=== PATIENT | female | born 1995 | race African-American/Black ===

== ENCOUNTER 2022-03-05 15:06 | Emergency (ER) | payer MEDICAID ==
[2022-03-06] MEDS ORDERED: NAPR-1074 MT (13:43)
== END 2022-03-05 15:36 | disposition left against medical advice (07) ==
LOC: ER 15:06
DX: Z53.21 Procedure and treatment not carried out due to patient leaving prior to being seen by health care provider (principal)

== ENCOUNTER 2022-03-06 08:53 | Emergency (ER) | payer MEDICAID ==
[~2022-03-06] VITALS: Ht 170.2 cm; Wt 127.0 kg
[2022-03-06] MEDS ORDERED: ACETAMINOPHEN 325MG TABLET PO ONE ×2 (09:30→12:00)
[2022-03-06 12:12] LABS: HEMATOCRIT. 38.4 % (36.0-48.0); HEMOGLOBIN. 12.8 g/dL (12.0-16.0); MEAN CORPUSCULAR HEMOGLOBIN 30.6 pg (28.0-32.0); MEAN CORPUSCULAR VOLUME 91.4 fL (81.0-99.0); MEAN PLATELET VOLUME 9.3 fl (7.4-10.4); PLATELET 216 x1000/uL (130-400); RED CELL DISTRIBUTION WIDTH 14.9 % (11.6-14.6)
[2022-03-06 12:19] LABS: CHLORIDE 105 mEq/L (98-107)
[2022-03-06 12:27] LABS: CLARITY URINE TURBID (CLEAR); COLOR URINE YELLOW (YELLOW); KETONES URINE 1+ (NEGATIVE); LEUKOCYTE ESTERASE URINE TRACE (NEGATIVE); NITRITE URINE NEGATIVE (NEGATIVE); OCCULT BLOOD URINE NEGATIVE (NEGATIVE); PH URINE 5.5 (4.5-8.0); PROTEIN URINE 1+ (NEGATIVE); SPECIFIC GRAVITY URINE 1.028 (1.005-1.030)
[2022-03-06 12:30] LABS: ETHANOL BLOOD < 10 mg/dL
[2022-03-06 12:44] LABS: PLATELET ESTIMATE NORMAL
[2022-03-06 13:20] LABS: *AMPHETAMINES SCREEN URINE NEGATIVE (NEGATIVE); *BARBITURATES SCREEN URINE NEGATIVE (NEGATIVE); *BENZODIAZEPINES SCREEN URINE NEGATIVE (NEGATIVE); *COCAINE SCREEN URINE NEGATIVE (NEGATIVE); METHADONE URINE SCREEN NEGATIVE (NEGATIVE); OPIATES URINE SCREEN NEGATIVE (NEGATIVE); PHENCYCLIDINE URINE SCREEN NEGATIVE (NEGATIVE)
[2022-03-06] MEDS ORDERED: NAPR-1074 MT (13:43)
[2022-03-06 14:00] LABS: CANNABINOID URINE SCREEN PRESUMTIVE POSITIVE (NEGATIVE)
[2022-03-06 14:05] VITALS: BP 132/85
== END 2022-03-06 15:32 | disposition home or self-care (01) ==
LOC: ER 09:01
DX: N94.6 Dysmenorrhea, unspecified (principal); J45.909 Unspecified asthma, uncomplicated; Z00.00 Encounter for general adult medical examination without abnormal findings
CPT/HCPCS: 36415; 74176; 76830; 76856; 80053; 80305; 80320; 81003; 81025; 85025; 99284; G0480

== ENCOUNTER 2022-11-03 12:48 | Emergency (ER) | payer MEDICAID ==
[~2022-11-03] VITALS: Ht 167.6 cm; Wt 127.0 kg
[~2022-11-03 12:48] MED LIST: NAPR-1074 MT
[2022-11-03 12:56] VITALS: BP 173/99; PULSE 90; RESP 18; TEMP 99
[2022-11-03] MEDS ORDERED: NIRM1TAB PO (13:03)
== END 2022-11-03 13:16 | disposition home or self-care (01) ==
LOC: ER 12:48
DX: U07.1 COVID-19 (principal)
CPT/HCPCS: 99283

== ENCOUNTER 2023-12-01 23:00 | Emergency (ER) | payer MEDICAID ==
[~2023-12-01] VITALS: Ht 172.7 cm; Wt 127.0 kg
[~2023-12-01 23:00] MED LIST changes: +NIRM1TAB PO
[2023-12-01 23:04] VITALS: BP 151/93; RESP 16; TEMP 97.8; O2SAT 99
[2023-12-01 23:06] VITALS: PULSE 100; O2SAT 100
[2023-12-02] MEDS ORDERED: AMOX1TAB16 MT (00:50)
[2023-12-02] MEDS ORDERED: IBUP-2029 MT (00:50)
[2023-12-02] MEDS: AMOXICILLIN/POTASSIUM CLAVULANATE 875/125MG TAB PO ONE (01:08)
[2023-12-02] MEDS: KETOROLAC 30MG/ML VIAL IM ONE (01:08)
== END 2023-12-02 01:13 | disposition home or self-care (01) ==
LOC: ER 23:09
DX: K01.1 Impacted teeth (principal); J45.909 Unspecified asthma, uncomplicated; F12.90 Cannabis use, unspecified, uncomplicated; Z79.899 Other long term (current) drug therapy
CPT/HCPCS: 99283; 81025; 96372; J1885; Z7610